=== PATIENT | female | born 1995 | race African-American/Black ===

== ENCOUNTER 2017-02-26 03:21 | Emergency (ER) | payer MEDICAID ==
[~2017-02-26] VITALS: Ht 175.3 cm; Wt 84.0 kg
[2017-02-26 03:41] VITALS: BP 145/89
== END 2017-02-26 04:15 | disposition left against medical advice (07) ==
LOC: ER 03:22
DX: Z53.21 Procedure and treatment not carried out due to patient leaving prior to being seen by health care provider (principal)